=== PATIENT | female | born 1950 | race Caucasian/White ===

== ENCOUNTER 2022-07-31 11:39 | Inpatient (IN) | payer MEDICARE, OTHER ==
[~2022-07-31] VITALS: Ht 160 cm; Wt 53.5 kg
[2022-07-31 12:38] LABS: HEMATOCRIT 36.7 % (31.2-41.9); MEAN CORPUSCULAR HEMOGLOBIN 29.1 uug (24.7-32.8); MEAN CORPUSCULAR VOLUME 87.1 fL (75.5-95.3); PLATELET COUNT (AUTO) 169 K/uL (179-408)
--- NOTE | 2022-07-31 12:49 | NUR ---
PT IS UNABLE TO PROVIDE INFORMATION ABOUT HER HOME MEDICATION NAMES AND DOSAGES.
[2022-07-31 13:01] LABS: CARBON DIOXIDE 31 mmol/L (21-32); CHLORIDE 102 mmol/L (98-107); CREATININE 0.7 mg/dL (0.6-1.3); GLUCOSE 128 mg/dL (74-106); POTASSIUM 3.5 mmol/L (3.5-5.1); UREA NITROGEN, BLOOD 13 mg/dL (7-18)
[2022-07-31 13:02] LABS: ETHANOL < 3 MG/DL (0-0)
[2022-07-31 13:06] LABS: ALANINE AMINOTRANSFERASE 9 U/L (14-59); ALKALINE PHOSPHATASE 64 U/L (50-136); ASPARTATE AMINOTRANSFERASE 11 U/L (15-37); BILIRUBIN,DIRECT 0.3 mg/dL (0.0-0.2); BILIRUBIN,TOTAL 0.9 mg/dL (0.2-1.0); TOTAL PROTEIN, SERUM 7.2 g/dL (6.4-8.2)
[2022-07-31 14:19] LABS: *BILIRUBIN,URIN NEGATIVE (NEGATIVE); *BLOOD, URINE NEGATIVE (NEGATIVE); *CLARITY,URINE CLEAR (CLEAR); *COLOR,URINE YELLOW (YELLOW); *KETONES,URINE 2+ (NEGATIVE); LEUKOCYTE ESTERASE ,URINE NEGATIVE (NEGATIVE); NITRITE, URINE NEGATIVE (NEGATIVE); UGLUCOSE NEGATIVE (NEGATIVE)
[2022-07-31 14:29] LABS: *AMPHETAMINE, URINE NEGATIVE (NEGATIVE); *CANNABINOID, URINE NEGATIVE (NEGATIVE); *COCCAINE, URINE NEGATIVE (NEGATIVE); *OPIATE, URINE NEGATIVE (NEGATIVE); *PHENCYCLIDINE SCREEN,URINE NEGATIVE (NEGATIVE)
--- NOTE | 2022-07-31 15:02 | NUR ---
Called report to IVANNA Johnston.
--- NOTE | 2022-07-31 16:02 | NUR ---
GPS: Nursing Notes: Admitting Notes: Patient is admitted to [facility] on 5150 GD due to individual could not provide information for aunt or support system, [place] airport [place] aunt, told officers that she had not eaten and is hearing voices - saying her aunt is dying. Individual does not have a plan for self care. Staff oriented her to the Unit and gave her admitting package with Patient's Rights Handbook. Dr. Trejo and Dr. Holcomb informed of admission, continue to monitor for safety, continue with treatment plan.
[2022-07-31] MEDS ORDERED: MAG HYDROX/AL HYDROX/SIMETH 30 ML LIQUID UDC PO PRN (16:15)
[2022-07-31] MEDS ORDERED: MAGNESIUM HYDROXIDE 30 ML LIQUID UDC PO PRN (16:15)
[2022-07-31] MEDS ORDERED: ZOLPIDEM 5 MG TABLET PO PRN (16:15)
[2022-07-31] MEDS ORDERED: ALBU0.63 IH (16:21)
[2022-07-31] MEDS ORDERED: NAPR-1164 PO (16:22)
[2022-07-31 16:59] VITALS: BP 131/74
[2022-07-31 19:46] VITALS: BP 126/74
[2022-08-01] MEDS: ACETAMINOPHEN 325 MG TABLET PO PRN ×2 (07:09→20:41)
[2022-08-01 08:16] VITALS: BP_SYST 100; BP_SYST 115; BP_DIAS 53; BP_DIAS 73
--- NOTE | 2022-08-01 10:56 | NUR ---
MICHA Initial Discharge Note: Pt currently resides at [address] [place] [address] ([phone]). It is unclear at this time if pt lives alone or with family. MICHA will continue to work with pt, family and MD to ensure a safe and proper discharge plan.
--- NOTE | 2022-08-01 10:58 | NUR ---
Firearms Report: Teacher Of The Sight Impaired completed and submitted a DOJ firearms report for 5150 grave disability certifications. A copy of report has been placed in patient chart.
[2022-08-01 11:11] LABS: CREATININE 0.8 mg/dL (0.6-1.3)
[2022-08-01] MEDS ORDERED: NAPROXEN 500 MG TABLET PO PRN (11:45)
[2022-08-01 16:04] VITALS: BP 126/65
--- NOTE | 2022-08-01 16:18 | NUR ---
APS Contact Note: APS social service liaison Tejal ([phone]) contacted this check writer salesperson and left a voicemail for a call back to provide information for this SW. This SW returned Tejal's call and left a voicemail for a call back with this check writer salesperson's direct line. SW will continue to follow-up.
--- NOTE | 2022-08-01 18:00 | NUR ---
GPS: Nursing Notes: Thought Disorder: Patient is awake and responding to her name, wandering around the unit aimlessly, AWOL risk, trying to walk out when exit door is open, A/Ox2, forgetful, redirected and reoriented during shift, unable to formulate a viable plan for self care, gets easily anxious when redirected, resistant to nursing care at times, stated "The voices are telling me that people wants to kill me...", internally preoccupied, continue to monitor for safety, continue with treatment plan.
[2022-08-01 20:21] VITALS: BP 148/59
[2022-08-01] MEDS: QUETIAPINE FUMARATE 25 MG TABLET PO SCH (20:41)
[2022-08-01] MEDS: ATORVASTATIN 20 MG TABLET PO SCH (20:42)
[2022-08-02 07:30] VITALS: BP 109/67
[2022-08-02] MEDS: ESCITALOPRAM OXALATE 10 MG TABLET PO SCH (10:04)
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
[2022-08-02 16:00] VITALS: BP 131/6
[2022-08-02 19:51] VITALS: BP 146/75
[2022-08-02] MEDS: QUETIAPINE FUMARATE 25 MG TABLET PO SCH (20:31)
[2022-08-02] MEDS: ATORVASTATIN 20 MG TABLET PO SCH (20:31)
[2022-08-03 07:30] VITALS: BP 101/57
[2022-08-03] MEDS: ESCITALOPRAM OXALATE 10 MG TABLET PO SCH (08:40)
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
[2022-08-03 16:00] VITALS: BP 116/60
--- NOTE | 2022-08-03 19:00 | NUR ---
GPS: Pt.was searched for contraband at this time by staff members along with security. Pt.is very uncooperative and paranoid thinking that staff is trying to steal her money and her jewelry. Explained to pt.numerous times that her money and jewelry are all going to the hosp.safe and she will get all of her belongings/property back once discharged. Unit rules were explained to pt.repeatedly.
[2022-08-03 20:12] VITALS: BP 111/62
[2022-08-03] MEDS: ATORVASTATIN 20 MG TABLET PO SCH (20:34)
[2022-08-03] MEDS: QUETIAPINE FUMARATE 25 MG TABLET PO SCH (20:34)
--- NOTE | 2022-08-03 20:43 | NUR ---
GPS: Pt.was caught by staff cheeking her meds.at this time. Refused to take meds.despite explanation of risks vs. benefits x3. Consequences of such behavior explained to her. Re-directed prn.
--- NOTE | 2022-08-04 06:27 | NUR ---
GPS: Pt.slept for only 1 hour last night. Refused sleeping pill when offered numerous times during the night for insomnia. Encouraged /instructed/reminded of the importance of adhering to her medicine regimen. Also was instructed not to cheek her meds. Pt.has poor insight and judgment to her present situation. Safe environment provided. Behavior monitoring continues.
[2022-08-04 07:30] VITALS: BP 104/50
[2022-08-04] MEDS: ESCITALOPRAM OXALATE 10 MG TABLET PO SCH (08:28)
[2022-08-04] MEDS: GLUCERNA SHAKE 237 ML CAN PO SCH (08:28)
[2022-08-04 20:06] VITALS: BP 123/65
[2022-08-04] MEDS: QUETIAPINE FUMARATE 25 MG TABLET PO SCH (20:13)
[2022-08-04] MEDS: ATORVASTATIN 20 MG TABLET PO SCH (20:13)
--- NOTE | 2022-08-05 06:24 | NUR ---
GPS: Pt.slept better last night. Slept 7.30 last night. Less anxious and paranoid this morning. Re-directed and re-assured prn. Safety emphasized. Will continue to monitor behavior.
[2022-08-05 07:52] VITALS: BP 108/50
[2022-08-05] MEDS: GLUCERNA SHAKE 237 ML CAN PO SCH (09:00)
[2022-08-05] MEDS: ESCITALOPRAM OXALATE 10 MG TABLET PO SCH (09:00)
[2022-08-05 16:35] VITALS: BP 118/52
--- NOTE | 2022-08-05 18:40 | NUR ---
GPS: Remain confused through the shift. compliant with meds. continue plan of care.
[2022-08-05 20:00] VITALS: BP 122/61
--- NOTE | 2022-08-05 20:30 | NUR ---
RECEIVED PATIENT IN THE HALLWAY. SHE IS NOTED A/O X 1 SHE IS A POOR HISTORIAN. NO MEANINGFUL CONVERSATION WITH THIS LABORER HIDE HOUSE. PT IS ABLE TO AMBULATE WITH STEADY GAIT. SHE IS COMPLIANT WITH HER MEDICATION REGIMENT DIET AND CARE. ALL HER NEED ARE MET. PATIENT IS REASSURED FOR HER SAFETY. SAFETY AND FALL PRECAUTIONS ARE IN PLACE. SHE WAS GIVEN PO FLUIDS AND SNACKS. WILL CONTINUE TO MONITOR.,
[2022-08-05] MEDS: QUETIAPINE FUMARATE 25 MG TABLET PO SCH (20:50)
[2022-08-05] MEDS: ATORVASTATIN 20 MG TABLET PO SCH (20:50)
[2022-08-06] MEDS: GLUCERNA SHAKE 237 ML CAN PO SCH (08:23)
[2022-08-06] MEDS: ESCITALOPRAM OXALATE 10 MG TABLET PO SCH (08:23)
[2022-08-06 08:25] VITALS: BP 101/58
[2022-08-06 16:16] VITALS: BP 154/64
[2022-08-06 20:04] VITALS: BP 142/62
[2022-08-06] MEDS: ATORVASTATIN 20 MG TABLET PO SCH (21:31)
[2022-08-06] MEDS: QUETIAPINE FUMARATE 25 MG TABLET PO SCH (21:31)
--- NOTE | 2022-08-07 04:52 | NUR ---
Although compliant with care, pt is confused, suspicious, and forgetful regarding her scheduled medications. Pt may "cheek" her meds if not paying close attention during medication time. Needs re-education and assurance.
[2022-08-07] MEDS: ESCITALOPRAM OXALATE 10 MG TABLET PO SCH (08:31)
[2022-08-07] MEDS: GLUCERNA SHAKE 237 ML CAN PO SCH (08:31)
[2022-08-07 09:06] VITALS: BP 118/67
--- NOTE | 2022-08-07 15:16 | NUR ---
GPS: Nursing Notes: Thought Disorder: Patient is awake and responding to her name, impaired judgment, poor insight, forgetful, redirected and reoriented during shift, AWOL risk, standing by the exit door - waiting for someone to come in or out, so she can walk out the unit, wandering around the unit, unable to formulate a viable plan for self care, needs prompting to participate in therapeutic groups, believes that there is nothing wrong with her, episode of trying to cheek her medication, explained the pros and cons of medications, stated "I want to go home....", continue to monitor for safety, continue with treatment plan.
[2022-08-07 16:17] VITALS: BP 128/65
[2022-08-07 19:49] VITALS: BP 112/64
[2022-08-07] MEDS: QUETIAPINE FUMARATE 25 MG TABLET PO SCH (20:31)
[2022-08-07] MEDS: ATORVASTATIN 20 MG TABLET PO SCH (20:32)
[2022-08-08 07:51] VITALS: BP 121/62
[2022-08-08] MEDS: ESCITALOPRAM OXALATE 10 MG TABLET PO SCH (08:33)
[2022-08-08] MEDS: GLUCERNA SHAKE 237 ML CAN PO SCH (08:34)
[2022-08-08 15:15] VITALS: BP 137/88
--- NOTE | 2022-08-08 16:17 | NUR ---
GPS: Nursing Notes: Thought Disorder: Patient is awake and responding to her name, wandering around the unit, impaired judgment, gets easily irritable when redirected, A/Ox1-2, disoriented, AWOL risk, standing by the exit door and waiting for staff to come in or out, so she can leave, stated "I want to go home..." When asked where is home, stated "I don't remember...But I need to leave..", poor insight, unable to formulate a viable plan for self care, continue to monitor for safety, continue with treatment plan.
[2022-08-08 19:50] VITALS: BP 124/64
[2022-08-08] MEDS: QUETIAPINE FUMARATE 25 MG TABLET PO SCH (20:33)
[2022-08-08] MEDS: ATORVASTATIN 20 MG TABLET PO SCH (20:33)
[2022-08-09 07:30] VITALS: BP 95/51
[2022-08-09] MEDS: GLUCERNA SHAKE 237 ML CAN PO SCH (09:09)
[2022-08-09] MEDS: ESCITALOPRAM OXALATE 10 MG TABLET PO SCH (09:10)
[2022-08-09 16:00] VITALS: BP 122/47
[2022-08-09 20:34] VITALS: BP 157/61
--- NOTE | 2022-08-09 21:00 | NUR ---
RECEIVED PATIENT IN HER ROOM SITTING IN HER BED. SHE IS NOTED A/O X 1 PT IS NOTED CALM AND PLEASANT UPON APPROACHED. SHE STATED THAT, "I AM HERE BECAUSE I WAS LOOKING FOR MY SISTER [place] BUT SHE WAS NOT THERE. PT HAS SOME INSIGHT ABOUT THE REASON FOR HER ADMISSION [facility]. SHE WAS COMPLIANT WITH HER MEDICATION REGIMENT AND THIS MILLING OPERATOR ASKED PATIENT TO OPEN HER MOUTH AND SHE AGREED. SHE WAS ASKED WHY IN THE PAST SHE HAS NOT TAKEN HER MEDICATION AND SHE STATED, "BECAUSE SOME OF THOSE MEDICATIONS MAKE ME SLEEPY". PATIENT WAS REASSURED. ALL HER NEED ARE MET. PATIENT IS REASSURED FOR HER SAFETY. SAFETY AND FALL PRECAUTIONS ARE IN PLACE. HER V/S ARE STABLE. SHE WAS GIVEN PO FLUIDS AND SNACKS. WILL CONTINUE TO MONITOR.
[2022-08-09] MEDS: QUETIAPINE FUMARATE 25 MG TABLET PO SCH (21:12)
[2022-08-09] MEDS: ATORVASTATIN 20 MG TABLET PO SCH (21:12)
[2022-08-10 07:30] VITALS: BP 129/64
[2022-08-10] MEDS: GLUCERNA SHAKE 237 ML CAN PO SCH (09:14)
[2022-08-10] MEDS: ESCITALOPRAM OXALATE 10 MG TABLET PO SCH (09:14)
[2022-08-10 16:00] VITALS: BP 143/67
--- NOTE | 2022-08-10 16:35 | NUR ---
SHIFT:GPS: NURSING NOTES: RECEIVED PT AT START OF SHIFT SITTING UP IN BED TALKING TO ROOMMATE. PT STAY IN HER ROOM ASKED TO TAKE HER MEDICATION SHE OPEN HER MOUTH AND SHE SWALLOWED HER MEDICINE. PT DENIES PAIN AND NO SIGNS OF DISTRESS NOTED. WILL CONTINUE TO MONITOR FOR SAFETY ALONG WITH FALLS.
[2022-08-10] MEDS: QUETIAPINE FUMARATE 25 MG TABLET PO SCH (20:24)
[2022-08-10] MEDS: ATORVASTATIN 20 MG TABLET PO SCH (20:24)
[2022-08-10 20:51] VITALS: BP 133/64
[2022-08-11 07:30] VITALS: BP 117/59
[2022-08-11] MEDS: GLUCERNA SHAKE 237 ML CAN PO SCH (09:04)
[2022-08-11] MEDS: ESCITALOPRAM OXALATE 10 MG TABLET PO SCH (09:04)
--- NOTE | 2022-08-11 15:48 | NUR ---
SNF Referral: Corporate Compliance Director faxed patient's referral packet including: History and Physical, Consultation, Progress Notes, Medication List and Labs to the following facilities for review and possible senior care placement: [facility] [address] ([phone]) and spoke with Norah davalos. Pt's clinicals are in review.
[2022-08-11 16:00] VITALS: BP 112/64
--- NOTE | 2022-08-11 16:18 | NUR ---
SW Discharge Update: Per Norah davalos at [facility] [address] ([phone]), pt is accepted to their facility upon discharge. Psychiatrist, Dr. Trejo is aware.
--- NOTE | 2022-08-11 18:35 | NUR ---
SHIFT NOTE RECEIVED PATIENT SITTING ON SIDE OF BED TALKING WITH ROOMMATE ON SIDE OF BED NO SIGNS OF DISTRESS NOTED. ISOLATION FROM GROUP AND PT DENIES PAIN LATER DURING SHIFT PATIENT IS PACING FROM ONE END OF ELIZABETH TO THE OTHER. Addendum: 08/11/22 at 1858 by [facility] INPATIENT RN1 RN PT IS OBSERVED FOR CHEEKING MEDICATION NO SIGNS OF DISTRESS NOTED WILL CONTINUE TO MONITOR FOR FALL AND SAFETY MAINTAINED. ASKING PATIENT TO OPEN MOUTH AFTER MEDICATION
[2022-08-11 20:17] VITALS: BP 139/73
[2022-08-11] MEDS: QUETIAPINE FUMARATE 25 MG TABLET PO SCH (20:35)
[2022-08-11] MEDS: ATORVASTATIN 20 MG TABLET PO SCH (20:35)
--- NOTE | 2022-08-12 06:19 | NUR ---
GPS: Remained calm and cooperative with meds and care. slept 6 hrs through the night. resting in bed comfortably. continue plan of care.
[2022-08-12 08:03] VITALS: BP 110/62
[2022-08-12] MEDS: ESCITALOPRAM OXALATE 10 MG TABLET PO SCH (08:30)
[2022-08-12] MEDS: GLUCERNA SHAKE 237 ML CAN PO SCH (08:30)
--- NOTE | 2022-08-12 13:46 | NUR ---
GPS: Nursing Notes: Thought Disorder: Patient is awake and responding to her name, impaired judgment, poor insight, forgetful, redirected and reoriented during shift, episode of trying to cheek her medication by hiding it under her tongue, explained the pros and cons of her medication, compliant with her medication, but stated "I am not depressed.. I want to go home.." unable to formulate a viable plan for self care, resistant with nursing care at times, continue to monitor for safety, continue with treatment plan.
[2022-08-12 16:24] VITALS: BP 124/56
[2022-08-12 20:00] VITALS: BP 150/68
[2022-08-12] MEDS: ATORVASTATIN 20 MG TABLET PO SCH (20:38)
[2022-08-12] MEDS: QUETIAPINE FUMARATE 25 MG TABLET PO SCH (20:38)
--- NOTE | 2022-08-12 21:00 | NUR ---
RECEIVED PATIENT IN HER ROOM IN BED. SHE IS NOTED AWAKE A/O X 1. HER MOOD IS LOW, HIS AFFECT IS BLUNTED. SHE IS A POOR HISTORIAN. SHE IS GUARDED AND WITHDRAWN. SHE DENIED SI/HI//AH. PATIENT IS REASSURED FOR HER SAFETY. SAFETY AND FALL PRECAUTIONS ARE IN PLACE. HER V/S ARE STABLE. HE WAS GIVEN PO FLUIDS AND SNACKS. ALL HIS NEEDS ARE MET. WILL CONTINUE TO MONITOR.
[2022-08-13 07:55] VITALS: BP 108/58
[2022-08-13] MEDS: ESCITALOPRAM OXALATE 10 MG TABLET PO SCH (08:33)
[2022-08-13] MEDS: GLUCERNA SHAKE 237 ML CAN PO SCH (08:33)
--- NOTE | 2022-08-13 11:26 | NUR ---
GPS: Nursing Notes: Thought Disorder: Patient is awake and responding to her name, disoriented, impaired judgment, poor insight, AWOL risk, episodes of standing by the exit door and waiting for staff to leave then she walks behind staff, redirected and reoriented during shift, stated "I want to go home... I told to my auntie.. I need to go.." Believes that her auntie is a pharmacy and she is talking to her, internally preoccupied, episodes of talking in Tagalog, when asked - stated in Amharic: "I am talking to my auntie..." unable to formulate a viable plan for self care, episode of trying to cheek her medication, stated "My auntie said not to take it.. she is a pharmacy..", continue to monitor for safety, continue with treatment plan.
[2022-08-13 16:38] VITALS: BP 125/60
[2022-08-13 20:01] VITALS: BP 118/62
[2022-08-13] MEDS: ATORVASTATIN 20 MG TABLET PO SCH (20:28)
[2022-08-13] MEDS: QUETIAPINE FUMARATE 25 MG TABLET PO SCH (20:28)
--- NOTE | 2022-08-13 21:00 | NUR ---
RECEIVED PATIENT IN HER ROOM SITTING IN HER BED. SHE IS NOTED AWAKE A/O X 1. SHE IS CALM AND PLEASANT UPON APPROACHED. SHE IS SUSPICIOUS ABOUT HER MEDICATION REGIMENT. SHE IS ISOLATIVE AND WITHDRAWN. SHE IS A POOR HISTORIAN. SHE HAS POOR INSIGHT AND IMPAIRED JUDGMENT TO HER ADMISSION TO MHU. DENIED SI/HI//AH. PT ABLE TO CFS. PATIENT IS REASSURED FOR HER SAFETY. SAFETY AND FALL PRECAUTIONS ARE IN PLACE. HER V/S ARE STABLE. HE WAS GIVEN PO FLUIDS AND SNACKS. ALL HER NEEDS ARE MET. WILL CONTINUE TO MONITOR.
[2022-08-14 08:03] VITALS: BP 102/59
[2022-08-14] MEDS: ESCITALOPRAM OXALATE 10 MG TABLET PO SCH (08:25)
[2022-08-14] MEDS: GLUCERNA SHAKE 237 ML CAN PO SCH (08:25)
--- NOTE | 2022-08-14 09:28 | NUR ---
MICHA Discharge Note: Pt will be discharged to [facility] located at [address] [place] [address] ([phone]) via Ambulance transportation at 11AM. MICHA spoke with admin coordinator, Norah ([phone]) at the facility who states they are ready to accept the patient today. Pt is aware and agreeable with discharge plan. Pt does not have any family contact. MICHA informed APS social insurance specialistMeli ([phone]) of pts discharge details and left a voicemail for a call back. Pt is alert and oriented x2, is unable to plan for self-care at this time. However, pt is willing to accept care at SNF. Pt denies any suicidal or homicidal ideation. Pt will follow-up at the facility with Psychiatrist, Dr. Trejo ([phone]) and Furnace Caretaker, Dr. Vail. Pt presents with calm mood and congruent affect. PHARMACY: [facility] ([phone]) [address] [facility] [address].
--- NOTE | 2022-08-14 13:40 | NUR ---
MICHA Discharge Update: Pt appeared very anxious, labile, and attempted to become combative with staff. Pt stated to leave her alone as she spoke into her hand requesting for the police. Pt appeared to begin hallucinating in her room and refused to leave. Pt's psychiatrist was called and given report. Pt's discharge to [facility] is cancelled for today. MICHA will continue to work with pt, Dr. Trejo and [facility] for pt's new discharge date when pt is cleared for discharge.
--- NOTE | 2022-08-14 13:43 | NUR ---
GPS: Nursing Notes: Chemical Restraint: Patient became agitated, poor angry management, posturing toward staff, paranoid behavior, psychotic, stated "I paid a lot of many here.. I am not leaving..", overly disruptive by shouting, pacing on the hallway and shouting "I am not leaving.. I am going to stay here... I paid a lot of many...", redirected and reoriented, but continue to posturing toward staff, threatening staff, restless behavior, unable to be redirected, pushing staff away from her, Dr. Trejo called back and ordered Zyprexa 5mg IM STAT for agitated behavior, R=18, medication IM given at this time, continue with treatment plan.
[2022-08-14] MEDS ORDERED: OLANZAPINE 10 MG VIAL IM ONE ×2 (13:45)
--- NOTE | 2022-08-14 14:13 | NUR ---
GPS: Nursing Notes: Reassessment of Chemical Restraint: Patient is awake and responding to her name, patient became calm, but continue to respond to internal stimuli by talking to unseen other, stated "I am talking to auntie...", medication IM was helpful, R=18, continue to be calmed and following staff directions, continue to monitor for safety, continue with treatment plan.
[2022-08-14 16:07] VITALS: BP 136/63
--- NOTE | 2022-08-14 16:19 | NUR ---
MICHA APS Contact: MICHA contacted APS social work associateMeli ([phone]) and left a voicemail informing her of pts discharge cancellation to [facility].
--- NOTE | 2022-08-14 17:58 | NUR ---
GPS: Nursing Notes: Thought Disorder: Patient is awake and responding to her name, poor anger management, impaired judgment, resistant with nursing care, tried to cheek her medication, A/Ox1, poor insight, paranoid behavior, psychotic, shouting "I am not leaving... I paid a lot of money here...", redirected and reoriented to reality, but continue to be paranoid, believes that we are trying to throw her out of the unit, unable to formulate a viable plan for self care, episodes of posturing and shouting to staff, continue to monitor for safety, continue with treatment plan.
[2022-08-14 19:46] VITALS: BP 116/68
[2022-08-14] MEDS: QUETIAPINE FUMARATE 25 MG TABLET PO SCH (20:44)
[2022-08-14] MEDS: ATORVASTATIN 20 MG TABLET PO SCH (20:44)
--- NOTE | 2022-08-15 06:40 | NUR ---
GPS NOTES: Received patient in bed, sleeping, responding to her name. She is A&0x2. She is med compliant. patient is noted to be sleeping mostly during shift. Closely monitored for safety.
[2022-08-15 08:00] VITALS: BP 108/38
[2022-08-15] MEDS: ESCITALOPRAM OXALATE 10 MG TABLET PO SCH (09:44)
[2022-08-15] MEDS: GLUCERNA SHAKE 237 ML CAN PO SCH (09:44)
[2022-08-15] MEDS: QUETIAPINE FUMARATE 25 MG TABLET PO SCH ×3 (09:52→21:03)
--- NOTE | 2022-08-15 14:26 | NUR ---
GPS: Nursing Notes: Thought Disorder: Patient is awake and responding to her name, isolative and withdrawn in her room, A/Ox1-2, forgetful, impaired judgment, poor insight, responding to internal stimuli by talking to unseen other in Tagalog, stated "I am talking to my auntie.." Redirected and reoriented during shift, episode of trying to cheek her medication, educated patient regarding the pros and cons of medication, unable to formulate a viable plan for self care, continue to monitor for safety, continue with treatment plan.
[2022-08-15 16:00] VITALS: BP 108/60
[2022-08-15 19:57] VITALS: BP 112/54
[2022-08-15] MEDS: ATORVASTATIN 20 MG TABLET PO SCH (21:03)
[2022-08-16 07:30] VITALS: BP 113/62
[2022-08-16] MEDS: ESCITALOPRAM OXALATE 10 MG TABLET PO SCH (09:07)
[2022-08-16] MEDS: OLANZAPINE 2.5 MG TABLET PO SCH ×3 (09:07→17:55)
[2022-08-16] MEDS: GLUCERNA SHAKE 237 ML CAN PO SCH (09:08)
[2022-08-16 16:00] VITALS: BP 120/54
--- NOTE | 2022-08-16 18:31 | NUR ---
Pt is awake, appears internally preoccupied. pt has minimal interactions and minimal disclosure. Pt needs to be checked for cheeking medications. pt has no plan for self care. pt appears to be suspicious of staff.
[2022-08-16 20:10] VITALS: BP 132/61
[2022-08-16] MEDS: ATORVASTATIN 20 MG TABLET PO SCH (20:35)
--- NOTE | 2022-08-17 06:21 | NUR ---
PATIENT SLEPT FOR APPROX 5 HRS THROUGH THE NIGHT. SHE CONTINUE WITH IMPAIRED INSIGHT AND JUDGMENT TO THE REASON FOR HER ADMISSION TO [facility]. SHE IS ABLE TO COMPLY WITH MEDICATION REGIMENT. SHE NEEDS TO BE CHECKED FOR POSSIBLE CHEEKING HER MEDICATIONS. SHE IS A POOR HISTORIAN, HER MOOD IS LOW AND HER AFFECT IS BLUNTED. PATIENT REQUIRES REALITY ORIENTATIONS SHE IS FORGETFUL. WILL CONTINUE TO MONITOR.
[2022-08-17 07:30] VITALS: BP 124/62
[2022-08-17] MEDS: OLANZAPINE 2.5 MG TABLET PO SCH ×2 (08:46→17:34)
[2022-08-17] MEDS: ESCITALOPRAM OXALATE 10 MG TABLET PO SCH (08:46)
[2022-08-17] MEDS: GLUCERNA SHAKE 237 ML CAN PO SCH (08:50)
--- NOTE | 2022-08-17 15:30 | NUR ---
Received Patient in room asleep.Patient is A/O X2 easily irritable.Patient is compliant with medications and with Nursing care.Patient stays in the day room for meals and for group activities.Patient walks with ! person assist. Patient yells every time she wants something and is demanding at times.
[2022-08-17 16:00] VITALS: BP 118/50
[2022-08-17 20:06] VITALS: BP 104/50
[2022-08-17] MEDS: ATORVASTATIN 20 MG TABLET PO SCH (20:09)
[2022-08-17] MEDS: OLANZAPINE 5 MG TABLET PO SCH (20:09)
[2022-08-18 07:30] VITALS: BP 111/60
[2022-08-18] MEDS: OLANZAPINE 2.5 MG TABLET PO SCH ×2 (08:26→17:04)
[2022-08-18] MEDS: GLUCERNA SHAKE 237 ML CAN PO SCH (08:26)
[2022-08-18] MEDS: ESCITALOPRAM OXALATE 10 MG TABLET PO SCH (08:26)
[2022-08-18] MEDS ORDERED: HYDR-3980 PO (09:43)
--- NOTE | 2022-08-18 14:56 | NUR ---
Received patient in room isolative withdrawn no interaction with other peers, compliant with all po medication but checked for cheeking medications. pt has no plan for self care. pt appears to be suspicious of staff.
[2022-08-18 16:00] VITALS: BP 109/52
[2022-08-18] MEDS: OLANZAPINE 5 MG TABLET PO SCH (20:23)
[2022-08-18] MEDS: ATORVASTATIN 20 MG TABLET PO SCH (20:23)
[2022-08-18 21:01] VITALS: BP 124/55
[2022-08-19] MEDS: ESCITALOPRAM OXALATE 10 MG TABLET PO SCH (08:05)
[2022-08-19] MEDS: OLANZAPINE 2.5 MG TABLET PO SCH ×2 (08:05→16:49)
[2022-08-19] MEDS: GLUCERNA SHAKE 237 ML CAN PO SCH (08:06)
--- NOTE | 2022-08-19 14:40 | NUR ---
patient remains isolative withdrawn ,Insight and judgment remains impaired. taking to herself responding to internal stimuli Re-directed and re-assured prn. Med.compliant. Will continue to monitor.
[2022-08-19 16:06] VITALS: BP 121/62
[2022-08-19] MEDS: OLANZAPINE 5 MG TABLET PO SCH (20:05)
[2022-08-19] MEDS: ATORVASTATIN 20 MG TABLET PO SCH (20:05)
[2022-08-19 20:22] VITALS: BP 129/71
--- NOTE | 2022-08-20 04:40 | NUR ---
Pt remains withdrawn and stayed in her room for almost entire shift. Pt denied feeling anxious or paranoid. Pt stated "I was just praying." Contracted for safety. Denies SI/HI.
[2022-08-20 08:19] VITALS: BP 106/49
[2022-08-20] MEDS: ESCITALOPRAM OXALATE 10 MG TABLET PO SCH (09:27)
[2022-08-20] MEDS: OLANZAPINE 2.5 MG TABLET PO SCH ×2 (09:28→17:13)
[2022-08-20] MEDS: GLUCERNA SHAKE 237 ML CAN PO SCH (09:28)
--- NOTE | 2022-08-20 14:27 | NUR ---
Received patient sleeping in her room. Patient is compliant with medications, cooperative with nursing care, withdrawn, quiet, isolative and confinding in her room most of the time. Patient ambulates independently, requires minimal assistance with ADL, continent. Emotional support provided. Fall and safety precautions implemented.
[2022-08-20 16:15] VITALS: BP 117/64
[2022-08-20 19:50] VITALS: BP 112/56
[2022-08-20] MEDS: OLANZAPINE 5 MG TABLET PO SCH (20:08)
[2022-08-20] MEDS: ATORVASTATIN 20 MG TABLET PO SCH (20:08)
[2022-08-20] MEDS: LORAZEPAM 0.5 MG TABLET PO PRN (20:08)
--- NOTE | 2022-08-21 04:52 | NUR ---
Pt remains isolated, withdrawn, but overall compliant with POC. Pt denies having SI/HI, and is contracted for safety. Will continue to monitor.
[2022-08-21 07:50] VITALS: BP 113/63
[2022-08-21] MEDS: ESCITALOPRAM OXALATE 10 MG TABLET PO SCH (08:14)
[2022-08-21] MEDS: OLANZAPINE 2.5 MG TABLET PO SCH ×2 (08:14→17:42)
[2022-08-21] MEDS: GLUCERNA SHAKE 237 ML CAN PO SCH (08:15)
--- NOTE | 2022-08-21 14:04 | NUR ---
MICHA APS Contact: MICHA contacted APS hospital social workerMeli ([phone]) and left a voicemail informing her of pts discharge order for 08/22/22 to [facility] [address] ([phone]) via Ambulance transportation. MICHA left contact information for a call back if needed.
--- NOTE | 2022-08-21 14:35 | NUR ---
patient remains isolative withdrawn ,Insight and judgment remains impaired. taking to herself or unseen person responding to internal stimuli Re-directed and re-assured prn. Med.compliant. Will continue to monitor.
[2022-08-21 16:06] VITALS: BP 116/59
[2022-08-21 20:10] VITALS: BP 136/53
[2022-08-21] MEDS: ATORVASTATIN 20 MG TABLET PO SCH (20:57)
[2022-08-21] MEDS ORDERED: OLANZAPINE 5 MG TABLET PO SCH (21:00)
--- NOTE | 2022-08-21 21:33 | NUR ---
GPS: Med.compliant. Re-directed prn. Noted to be mumbling to self at times. Re-assured prn. Fall precautions observed.
--- NOTE | 2022-08-21 23:43 | NUR ---
GPS: Pt.still awake at this time. Noted to be mumbling to self. Refused Ambien 5mg PO for insomnia despite explanation of risks vs benefits x3. Quiet environment provided to facilitate sleep. Will continue to monitor.
[2022-08-22 07:26] VITALS: BP 117/48
[2022-08-22] MEDS: ESCITALOPRAM OXALATE 10 MG TABLET PO SCH (08:10)
[2022-08-22] MEDS: OLANZAPINE 2.5 MG TABLET PO SCH (08:10)
[2022-08-22] MEDS: GLUCERNA SHAKE 237 ML CAN PO SCH (08:11)
--- NOTE | 2022-08-22 09:02 | NUR ---
MICHA Discharge Note: Pt will be discharged to [facility] located at [address] [place] [id number] ([phone]) via Ambulance transportation at 11AM. MICHA spoke with admin coordinator, Norah ([phone]) at the facility who states they are ready to accept the patient today. Pt is aware and agreeable with discharge plan. Pt does not have any family contact at this time. Pt is alert and oriented x4, is unable to plan for self-care at this time. However, pt is willing to accept care at SNF. Pt denies any suicidal or homicidal ideation. Pt will follow-up at the facility with Psychiatrist, Dr. Chavez and Hat Model, Dr. Vail. Pt presents with calm mood and congruent affect. Pt is cooperative with care. PHARMACY: [facility] ([phone]) [address] [facility] [address]. Addendum: 08/22/22 at 0931 by MICHA TREVINO Updated information added in new note.
--- NOTE | 2022-08-22 09:31 | NUR ---
MICHA Discharge Note: Pt will be discharged to [facility] located at [address] [place] [address] ([phone]) via Ambulance transportation at 11AM. MICHA spoke with admin coordinator, Norah ([phone]) at the facility who states they are ready to accept the patient today. Pt is aware and agreeable with discharge plan. Pt does not have any family contact at this time. MICHA contacted pts APS delinquency prevention social worker, Meli ([phone]) and left a voicemail informing pts discharge details. Meli was previously informed from prior discussion. Pt is alert and oriented x2, is unable to plan for self-care at this time. However, pt is willing to accept care at SNF. Pt denies any suicidal or homicidal ideation. Pt will follow-up at the facility with Psychiatrist, Dr. Trejo ([phone]) and Ob/Gyn Nurse, Dr. Vail. Pt presents with calm mood and congruent affect. Pt is cooperative with care. PHARMACY: [facility] ([phone]) [address] [facility] [address].
[2022-08-22] MEDS: LORAZEPAM 0.5 MG TABLET PO PRN (09:48)
--- NOTE | 2022-08-22 11:40 | NUR ---
Discharged patient to [facility] via Ambulance transportation at 11AM. Pt is aware and agreeable with discharge plan. Pt does not have any family contact at this time. Pt is alert and oriented x2, is unable to plan for self-care at this time. However, pt is willing to accept care at SNF. Pt denies any suicidal or homicidal ideation. all valuable belonging given to ambulance staffs ( total $[phone] in guy), report called into Rem RN line department supervisor @[phone] .Pt will follow-up at the facility with Psychiatrist, Dr. Trejo and Kindergartners Helper, Dr. Vail.
== END 2022-08-22 12:00 | DRG 885 ==
LOC: ER 11:39 → GPS 15:08
PROVIDERS: ADMIT Psychiatry & Neurology Psychiatry; ATTEND Internal Medicine
DX: F39 Unspecified mood [affective] disorder (principal); F03.93 Unspecified dementia, unspecified severity, with mood disturbance; F03.92 Unspecified dementia, unspecified severity, with psychotic disturbance; F29 Unspecified psychosis not due to a substance or known physiological condition; E78.5 Hyperlipidemia, unspecified; Z20.822 Contact with and (suspected) exposure to COVID-19; R73.03 Prediabetes; F32.A Depression, unspecified; K21.9 Gastro-esophageal reflux disease without esophagitis; R73.9 Hyperglycemia, unspecified; R90.89 Other abnormal findings on diagnostic imaging of central nervous system; R94.31 Abnormal electrocardiogram [ECG] [EKG]; E87.6 Hypokalemia
CPT/HCPCS: 36415; 70450; 84443; 85025; 93005; A4663; G0480; J2358